=== PATIENT | male | born 1975 | race Caucasian/White ===

== ENCOUNTER → 2019-01-20 | Outpatient (CLI) | payer SELFPAY ==
[~2019-01-20] VITALS: Ht 165.1 cm; Wt 77.3 kg
[~2019-01-20] MED LIST: DAZIDOX10 MG PO; IBU800 M1 PO; ROXICODONE 55 MG/TAB PO
[2019-01-20 13:21] VITALS: BP 141/98; PULSE 102
[2019-01-20 14:05] VITALS: BP 141/101; PULSE 100
== END ==
LOC: COL.RAD 12:57
DX: M51.26 Other intervertebral disc displacement, lumbar region (principal)
CPT/HCPCS: J3301

== ENCOUNTER 2021-06-27 17:35 | Inpatient (IN) | payer MEDICAID ==
[~2021-06-27] VITALS: Ht 157.5 cm; Wt 99.6 kg
[2021-06-27 19:12] VITALS: BP 113/79; PULSE 96; TEMP 97.9
--- NOTE | 2021-06-27 19:26 | NUR ---
Arrived via EMS, lethargic, diaphoretic, VS stable, blood sugar 222, patient answers questions with verbal stimuli, bed bath given, gown changed, water offered, O2@4L per NC, will continue to monitor.
[2021-06-27 22:03] LABS: HEMATOCRIT 44.1 % (42.0-52.0); HEMOGLOBIN 15.1 g/dl (13.5-18.0); MEAN CELL VOLUME 90 fl (80.0-100.0); MEAN CORPUSCULAR HEMOGLOBIN 31 pg (27-31); MEAN CORPUSCULAR HGB CONC 34 g/dl (33.0-37.0); MEAN PLATELET VOLUME 11.1 fl (7.4-10.4); REDCELL DISTRIBUTION WIDTH-CV 12.8 % (11.5-14.5)
[2021-06-27 22:09] LABS: PROTHROMBIN TIME 11.4 SECONDS (9.7-12.8)
[2021-06-27 22:09] LABS: C-REACTIVE PROTEIN 2.75 mg/dL (0.00-0.50)
[2021-06-27 22:12] LABS: PARTIAL THROMBOPLASTIN TIME 29.7 SECONDS (26.0-37.0)
[2021-06-27 22:16] LABS: PLATELET COUNT 23 K/mm3 (130-400)
[2021-06-27 22:23] LABS: TROPONIN-I 0.058 ng/mL (0.00-0.033)
[2021-06-27 22:24] LABS: ARTERIAL BLD GAS O2 SATURATION 92.6 % (92-100); ARTERIAL BLD GAS TCO2 CT 18.1; ARTERIAL BLOOD GAS BASE EXCESS -7.9 (-2-2); ARTERIAL BLOOD GAS PCO2 33.6 mmHg (35-45); ARTERIAL BLOOD GAS PO2 69.4 mmHg (80-100); ARTERIAL BLOOD GAS pH 7.32 (7.35-7.45)
--- NOTE | 2021-06-27 22:28 | NUR ---
Patient labs called to KAM[facility] Meza: Have surgical scrub technician call me, and hold lovenox. updated patient on plan of care.
[2021-06-27 23:11] LABS: BASOPHIL 1 % (0-2); LYMPHOCYTE 13 % (20.0-51.0); NEUTROPHILS 83 % (42.0-75.2)
[2021-06-28] VITALS (10 sets, daily range): BP systolic 98–128; BP diastolic 59–82; PULSE 62–110; TEMP 95.1–98.7
--- NOTE | 2021-06-28 00:45 | NUR ---
Patient cool to touch, rectal temp 95.1- call placed to Renita [place], see new orders, pat dunn applied at this time, updated patient on plan of care.
--- NOTE | 2021-06-28 02:18 | NUR ---
Rectal temp of 95.1 - bear hugger remains in use
[2021-06-28 07:01] LABS: ARTERIAL BLD GAS O2 SATURATION 94.7 % (92-100); ARTERIAL BLD GAS TCO2 CT 18.2; ARTERIAL BLOOD GAS BASE EXCESS -5.8 (-2-2); ARTERIAL BLOOD GAS HCO3 17.3 meq/L (22-26); ARTERIAL BLOOD GAS PCO2 28.2 mmHg (35-45); ARTERIAL BLOOD GAS PO2 71.1 mmHg (80-100); ARTERIAL BLOOD GAS pH 7.41 (7.35-7.45)
[2021-06-28 07:21] LABS: CALCIUM 7.7 mg/dL (8.4-10.2); CREATININE, serum 0.84 mg/dL (0.72-1.25); MAGNESIUM 2.2 mg/dL (1.6-2.6); POTASSIUM 4.1 mmol/L (3.5-4.5)
[2021-06-28 07:27] LABS: TROPONIN-I 0.032 ng/mL (0.00-0.033)
[2021-06-28 08:52] LABS: GRAN # 7.9 K/mm3 (1.4-6.5); GRAN % 89.7 % (42.2-75.2); HEMATOCRIT 42.1 % (42.0-52.0); HEMOGLOBIN 14.4 g/dl (13.5-18.0); LYMPH # 0.7 K/mm3 (1.2-3.4); LYMPH % 7.4 % (20.0-51.0); MEAN CELL VOLUME 90 fl (80.0-100.0); MEAN CORPUSCULAR HEMOGLOBIN 31 pg (27-31); MEAN CORPUSCULAR HGB CONC 34 g/dl (33.0-37.0); MEAN PLATELET VOLUME 11.8 fl (7.4-10.4); MONO # 0.2 K/mm3 (0.1-0.6); MONO % 2.6 % (1.7-9.3); RED BLOOD COUNT 4.67 M/mm3 (4.20-5.60); REDCELL DISTRIBUTION WIDTH-CV 13.1 % (11.5-14.5)
[2021-06-28 09:25] LABS: PLATELET COUNT 36 K/mm3 (130-400)
--- NOTE | 2021-06-28 09:26 | NUR ---
CRITICAL PLATELET COUNT CALLED TO DR. NUGENT. NO FURTHER INSTRUCTIONS AT THIS TIME.
--- NOTE | 2021-06-28 10:45 | NUR ---
PT RESTING IN BED. MORNING MEDICATIONS GIVEN. SHIFT ASSESSMENT COMPLETED. PT ALERT AND AMBULATING AROUND ROOM. DENIES ANY PAIN. TEMPERATURE IS STABLE. NO LONGER DIAPHORETIC. WILL CONTINUE TO MONITOR.
[2021-06-28 13:09] LABS: TRICYCLIC ANTIDEPRESS URINE NEGATIVE
--- NOTE | 2021-06-28 14:38 | NUR ---
SW attempted to reach patient x2 and was unsuccessful
--- NOTE | 2021-06-28 17:50 | NUR ---
INSTRUCTED BY DR. NUGENT TO OBTAIN A DOPPLER ON BLE DORSALIS PEDIS PULSE. BOTH WERE AUDIBLE WITH DOPPLER AND WERE WARM AND NORMAL PINK SKIN TONE.
[2021-06-29 04:00] VITALS: BP 106/89; PULSE 95; TEMP 97.7
--- NOTE | 2021-06-29 07:23 | NUR ---
pt placed on 12 cpap during the noc 40% fiO2, back on 4L per NC now, refuses to prone, bgm q4hr, sliding scale required, pt upset that staff is in and out of the room for frequent checks.
[2021-06-29 08:12] LABS: BASO % 0.1 % (0.0-2.0); GRAN # 8.2 K/mm3 (1.4-6.5); GRAN % 86.5 % (42.2-75.2); HEMATOCRIT 40.8 % (42.0-52.0); HEMOGLOBIN 14.1 g/dl (13.5-18.0); LYMPH # 0.9 K/mm3 (1.2-3.4); MEAN CELL VOLUME 89 fl (80.0-100.0); MEAN CORPUSCULAR HEMOGLOBIN 31 pg (27-31); MEAN CORPUSCULAR HGB CONC 35 g/dl (33.0-37.0); MEAN PLATELET VOLUME 11.4 fl (7.4-10.4); MONO # 0.4 K/mm3 (0.1-0.6); MONO % 3.7 % (1.7-9.3); RED BLOOD COUNT 4.59 M/mm3 (4.20-5.60); REDCELL DISTRIBUTION WIDTH-CV 13.1 % (11.5-14.5)
[2021-06-29 08:28] LABS: C-REACTIVE PROTEIN 1.94 mg/dL (0.00-0.50); CALCIUM 8.3 mg/dL (8.4-10.2); CREATININE, serum 0.78 mg/dL (0.72-1.25); POTASSIUM 4.1 mmol/L (3.5-4.5)
[2021-06-29 08:52] VITALS: BP 111/66; PULSE 96; TEMP 97.5
[2021-06-29 09:46] LABS: PLATELET COUNT 47 K/mm3 (130-400)
--- NOTE | 2021-06-29 11:22 | NUR ---
Assessment completed, alert/oriented, vital signs stable, denies pain or discomfort, he stated he feels improved, CXR however looks a little worse per hosptialist, lungs diminsihed with some wheezing noted, remains on 4L. o2, heart RRR/d sital pulses are palapble, tolerting PO intake, denies other needs, I have discussed plan of care with and will continue to monitor patient
[2021-06-29 12:35] VITALS: BP 107/69; PULSE 101; TEMP 97.7
[2021-06-29 16:34] VITALS: BP 124/86; PULSE 96; TEMP 98.2
[2021-06-29 20:26] VITALS: BP 100/56; PULSE 99; TEMP 98.2
[2021-06-30 00:12] VITALS: BP 100/63; PULSE 92; TEMP 97.8
[2021-06-30 04:30] VITALS: BP 143/78; PULSE 93; TEMP 98.4
[2021-06-30 07:33] LABS: CALCIUM 8.3 mg/dL (8.4-10.2); CREATININE, serum 0.79 mg/dL (0.72-1.25)
[2021-06-30 08:38] VITALS: BP 106/77; PULSE 99; TEMP 97.9
--- NOTE | 2021-06-30 10:58 | NUR ---
PT ALERT AND ORIENTED. PT HAS DIMINISHED LUNGS IN ALL LOBES, REPORTS SOA WITH EXERTION. PT HAS ACTIVE BOWELS, SOFT, NON-TENDER. PT INDEPENDENT IN ROOM. PT CAP REFILL <3S. S1,S2 AUSCULTATED. PT NEURO CHECK PERFORMED PER ORDERS, NO SIGNIFICANT ALERTATION NOTED. DISCUSSED WITH DR. NUGENT ON DISCONTINUING NEURO CHECKS. PT CALL LIGHT WITHIN REACH.
[2021-06-30 12:06] LABS: HEMATOCRIT 36.6 % (42.0-52.0); HEMOGLOBIN 12.4 g/dl (13.5-18.0); MEAN CELL VOLUME 91 fl (80.0-100.0); MEAN CORPUSCULAR HEMOGLOBIN 31 pg (27-31); MEAN CORPUSCULAR HGB CONC 34 g/dl (33.0-37.0); RED BLOOD COUNT 4.02 M/mm3 (4.20-5.60)
[2021-06-30 12:08] LABS: PLATELET COUNT 136 K/mm3 (130-400)
[2021-06-30 12:23] VITALS: BP 119/84; PULSE 92; TEMP 97.4
[2021-06-30 16:38] VITALS: BP 117/79; PULSE 93; TEMP 97.4
--- NOTE | 2021-06-30 19:40 | NUR ---
PT CONTINUING ON PLAN OF CARE. PT ABLE TO CALL FOR NEEDS, INDEPENDENT IN ROOM. PT VITALS STABLE THIS SHIFT, BLOOD SUGARS MANAGED WITH INSULIN PER ORDERS. NO SIGNIFICANT CHANGES NOTED THIS SHIFT.
[2021-06-30 20:10] VITALS: BP 102/64; PULSE 94; TEMP 98.7
[2021-07-01 01:14] VITALS: BP 113/72; PULSE 88; TEMP 97.5
[2021-07-01 04:43] VITALS: BP 119/82; PULSE 92; TEMP 97.8
--- NOTE | 2021-07-01 05:47 | NUR ---
Rested quietly throughout the night, telemetry in use, call dominguez w/i reach, no s/s of hypo/hyper glycemia, on room air, no shob noted at this time, ambulates independently in room. Will continue to monitor.
[2021-07-01 07:27] LABS: HEMATOCRIT 40.6 % (42.0-52.0); MEAN CELL VOLUME 88 fl (80.0-100.0); MEAN CORPUSCULAR HEMOGLOBIN 30 pg (27-31); MEAN CORPUSCULAR HGB CONC 35 g/dl (33.0-37.0); MEAN PLATELET VOLUME 12.6 fl (7.4-10.4); PLATELET COUNT 108 K/mm3 (130-400); REDCELL DISTRIBUTION WIDTH-CV 12.5 % (11.5-14.5)
[2021-07-01 08:00] VITALS: BP 140/85; PULSE 77; TEMP 97.7
[2021-07-01 08:40] VITALS: BP 100/70; PULSE 86; TEMP 98.7
--- NOTE | 2021-07-01 10:22 | NUR ---
Patient sleeping with eyes closed upon entering the room. Respirations even and unlabored. Scheduled medications given. Shift assessment performed. Bruise on left upper arm noted. Skin on heels very dry, but intact. Patient denies any pain, discomfort, N/V/D, and is afebrile. Patient does report dyspnea on exertion. Currently on RA. Patient denies any further needs at this time. Call light in reach. VSS. Patient A&O.
[2021-07-01 12:04] VITALS: BP 101/74; PULSE 94; TEMP 98.6
[2021-07-01] MEDS ORDERED: MONODOX100 PO (12:43)
[2021-07-01] MEDS ORDERED: DECADRON6 MG PO (12:44)
[2021-07-01] MEDS ORDERED: ZESTRIL 5MG5 MG PO (12:44)
[2021-07-01] MEDS ORDERED: FREESTYLE PREC1 EAC5 MC (12:48)
[2021-07-01] MEDS ORDERED: GLUCOSE TEST ST1 DEV MC (12:48)
[2021-07-01] MEDS ORDERED: INSULIN PEN NE1 EAC1 MC (12:48)
[2021-07-01] MEDS ORDERED: BD ALCOHOL1 SWA MC (12:48)
[2021-07-01] MEDS ORDERED: LANCETS MC (12:48)
[2021-07-01] MEDS ORDERED: GLUTOSE 1515 GM PO (12:48)
[2021-07-01] MEDS ORDERED: OMNICEF 300MG300 MG PO (12:49)
[2021-07-01] MEDS ORDERED: PROAIR HFA0.09 MG/AC IH (12:49)
[2021-07-01] MEDS ORDERED: LEVEMIR FLEX100 U/ML SQ (12:52)
[2021-07-01] MEDS ORDERED: GLUCAGON EMERGEN1 M1 SQ (13:10)
[2021-07-01] MEDS ORDERED: NOVOLOG FLEX100 U/ML SQ (13:10)
[2021-07-01] MEDS ORDERED: GLUCOPHAGE500 MG/TAB PO (13:18)
--- NOTE | 2021-07-01 16:00 | NUR ---
Patient deemed fit for discharge. IV's DC's, catheter intact, not signs of phlebitis. Discharge eduction/instructions given. New sliding scale explained to patient. Importance of taking medications as perscribed emphasized. Patient Verbalized an understanding of the teaching. Patient denies any further pain, discomfort, SOA, or further needs at this time. VSS. Patient A&O. Currently on RA. Patient ambulated from building escorted by [facility] Staff. Family transporting home.
== END 2021-07-01 16:00 | disposition home or self-care (01) | DRG 177 ==
LOC: MEDICAL 17:35
PROVIDERS: Internal Medicine; Nurse Practitioner Family; ADMIT Internal Medicine
PROC: XW033E5 Introduction of Remdesivir Anti-infective into Peripheral Vein, Percutaneous Approach, New Technology Group 5 (ICD-10-PCS; principal; 2021-06-27)
DX: U07.1 COVID-19 (principal); J96.01 Acute respiratory failure with hypoxia; J12.82 Pneumonia due to coronavirus disease 2019; I42.8 Other cardiomyopathies; I50.42 Chronic combined systolic (congestive) and diastolic (congestive) heart failure; J44.0 Chronic obstructive pulmonary disease with (acute) lower respiratory infection; E11.9 Type 2 diabetes mellitus without complications; F17.210 Nicotine dependence, cigarettes, uncomplicated; G47.30 Sleep apnea, unspecified; D69.6 Thrombocytopenia, unspecified; T68.XXXA Hypothermia, initial encounter; Z91.19 Patient's noncompliance with other medical treatment and regimen; Z73.0 Burn-out; I11.0 Hypertensive heart disease with heart failure; R79.89 Other specified abnormal findings of blood chemistry; G71.11 Myotonic muscular dystrophy; C69.90 Malignant neoplasm of unspecified site of unspecified eye
CPT/HCPCS: 99223-AI; 99232-AI; 99233-AI; 99239; J0696; J1650; J1815; J7030; J7050; J8540